=== PATIENT | female | born 1960 | race Caucasian/White ===

== ENCOUNTER 2018-06-26 08:44 | Day surgery (SDC) | payer BC ==
[2018-06-21 14:51] VITALS: BMI 31.7
[~2018-06-26 08:44] MED LIST: LACTATED RINGERS 1,000 ML IV SCH
[2018-06-26 09:51] VITALS: RESP 16; TEMP 98.1
[2018-06-26] MEDS ORDERED: LIDOCAINE 1% 20 ML VIAL (10MG/ML) FOR IV START INTRADERMA ONE (09:51)
[2018-06-26] MEDS ORDERED: LIDOCAINE 1% INJ 10MG/ML (20 ML MDV) ONE (10:49)
[2018-06-26] MEDS ORDERED: PROPOFOL 10 MG/ML 20 ML VIAL IV ONE (10:49)
--- NOTE | 2018-06-26 11:32 | P.PCN ---
Date of Procedure: 06/26/18 Procedure(s) Performed: Procedure: Colonoscopy and polypectomy. Preoperative diagnosis: Screening for neoplasia. Postoperative diagnosis: Sigmoid polyp snared but no large polyps or cancer. Preparation: HalfLytely prep. Sedation: Was provided by anesthesia. Brief clinical history: The patient is a 57-year-old female who is scheduled for this evaluation for screening for neoplasia age being her risk factor. There is no family history of colon cancer. The patient has no abdominal complaints, bleeding or anemia. This would be her first colonoscopy. Procedure: With the patient on her left lateral decubitus position and after informed consent and adequate sedation, the perianal area was inspected and it did not show any fissures or fistulas. There were no masses felt on digital rectal examination. The Olympus CFQ 160L video colonoscope was then inserted in the rectum in the usual fashion and advanced to the cecum. There was a pedunculated sigmoid polyp measuring around 1-1.5 cm which was snared and retrieved by suction but there were no large polyps or cancer. I retroflexed the endoscope in the rectum before the endoscope was withdrawn. The patient tolerated the procedure well. Plan: The patient was reassured. She will follow-up with you as planned and I recommended repeat exam in 5 years.
[2018-06-26 11:43] VITALS: BP 117/66; PULSE 77
== END 2018-06-26 12:13 | disposition home or self-care (01) ==
LOC: ORWHC2ENDO 08:44
DX: Z12.11 Encounter for screening for malignant neoplasm of colon (principal); D12.5 Benign neoplasm of sigmoid colon; Z88.8 Allergy status to other drugs, medicaments and biological substances; Z85.828 Personal history of other malignant neoplasm of skin; Z85.51 Personal history of malignant neoplasm of bladder; Z79.1 Long term (current) use of non-steroidal anti-inflammatories (NSAID); F17.200 Nicotine dependence, unspecified, uncomplicated
CPT/HCPCS: 88305; 45385; J2001; J2704

== ENCOUNTER → 2018-07-02 | Outpatient (CLI) | payer BC ==
--- NOTE | 2018-07-03 13:46 | MM ---
Reason for exam: screening (asymptomatic). Last mammogram was performed 3 years and 8 months ago. History: Patient is postmenopausal and has history of other cancer at age 56. Physical Findings: A clinical breast exam by your physician is recommended on an annual basis and results should be correlated with mammographic findings. MG Screening Mammo w CAD Bilateral CC and MLO view(s) were taken. Prior study comparison: November 07, 2014, bilateral MG screening mammo w CAD. November 30, 2012, bilateral digital screening mammo w/CAD. There are scattered fibroglandular densities. No suspicious abnormality. No significant changes when compared with prior studies. ASSESSMENT: Negative, BI-RAD 1 RECOMMENDATION: Routine screening mammogram of both breasts in 1 year.
== END | disposition home or self-care (01) ==
LOC: RADMAMWWP 07:09
PROVIDERS: ATTEND Family Medicine
DX: Z12.31 Encounter for screening mammogram for malignant neoplasm of breast (principal); C67.9 Malignant neoplasm of bladder, unspecified
CPT/HCPCS: 77067

== ENCOUNTER → 2020-08-10 | Outpatient (CLI) | payer BC ==
--- NOTE | 2020-08-11 13:32 | MM ---
Reason for exam: screening (asymptomatic). Last mammogram was performed 2 years and 1 month ago. History: Patient is postmenopausal and has history of other cancer at age 56. Family history of breast cancer in sister at age 39. Physical Findings: A clinical breast exam by your physician is recommended on an annual basis and results should be correlated with mammographic findings. MG Screening Mammo w CAD Bilateral CC and MLO view(s) were taken. Prior study comparison: July 02, 2018, bilateral MG screening mammo w CAD. November 07, 2014, bilateral MG screening mammo w CAD. There are scattered fibroglandular densities. Asymmetric breast tissue right posterior breast, stable. There is no discrete abnormality. ASSESSMENT: Negative, BI-RAD 1 RECOMMENDATION: Routine screening mammogram of both breasts in 1 year.
== END | disposition home or self-care (01) ==
LOC: RADMAMWWP 07:48
PROVIDERS: ATTEND Family Medicine
DX: Z12.31 Encounter for screening mammogram for malignant neoplasm of breast (principal)
CPT/HCPCS: 77067

== ENCOUNTER → 2021-10-04 | Outpatient (CLI) | payer BC ==
--- NOTE | 2021-10-05 10:08 | MM ---
Reason for exam: screening (asymptomatic). Last mammogram was performed 1 year and 2 months ago. History: Patient is postmenopausal and has history of other cancer at age 56. Family history of breast cancer in sister at age 39. Physical Findings: A clinical breast exam by your physician is recommended on an annual basis and results should be correlated with mammographic findings. MG Screening Mammo w CAD Bilateral CC and MLO view(s) were taken. Prior study comparison: August 10, 2020, bilateral MG screening mammo w CAD. July 02, 2018, bilateral MG screening mammo w CAD. There are scattered fibroglandular densities. There is no discrete abnormality. No significant changes when compared with prior studies. ASSESSMENT: Negative, BI-RAD 1 RECOMMENDATION: Routine screening mammogram of both breasts in 1 year.
== END | disposition home or self-care (01) ==
LOC: RADMAMWWP 13:00
PROVIDERS: ATTEND Family Medicine
DX: Z12.31 Encounter for screening mammogram for malignant neoplasm of breast (principal); Z80.3 Family history of malignant neoplasm of breast; Z78.0 Asymptomatic menopausal state
CPT/HCPCS: 77067

== ENCOUNTER → 2022-04-11 | Outpatient (CLI) | payer BC ==
--- NOTE | 2022-04-11 18:30 | BD ---
EXAMINATION TYPE: Axial Bone Density DATE OF EXAM: 04/11/2022 COMPARISON: 11/07/2014 CLINICAL HISTORY: 61 years year old Female. ICD-10 CODE: M85.89 OTHER DISORDER OF BONE Height: 61.2 IN Weight: 173 LBS FRAX RISK QUESTIONS: Family History (Parent hip fracture): YES MOTHER History of Fracture in Adulthood: YES RT WRIST AGE 35; Current Tobacco Use: YES RISK FACTORS HISTORY OF: History of Wrist Fracture: RT WRIST AGE 37 Active: YES Diet low in dairy products/other sources of calcium: YES Postmenopausal woman: AGE 52 MEDICATIONS: Additional Medications: CHOLESTEROL MEDS, ANTI DEPRESSANT MEDS EXAM MEASUREMENTS: Bone mineral densitometry was performed using the [employer] System. Bone mineral density as measured about the Lumbar spine is: ----- L1-L4(G/cm2): 1.243 T Score Values are as follows: ----- L1: 0.1 ----- L2: 0.2 ----- L3: 1.0 ----- L4: 0.6 ----- L1-L4: 0.6 Bone mineral density has: Decreased -7.5% since study of: 11/07/2014 Bone mineral density about the R hip (g/cm2): 0.791 Bone mineral density about the L hip (g/cm2): 0.832 T Score values are as follows: -----R Neck: -1.8 -----L Neck: -1.5 -----R Total: -1.3 -----L Total: -1.3 Bone mineral density has: Decreased -1.5% since study of: 11/07/2014 FRAX%s: The graph provided illustrates a 15.9 chance for a major osteoporotic fx and a 1.5 chance for the hips probability for fx in 10 years time. IMPRESSION: Osteopenia (T Score between -2.5 and -1). There is slightly increased risk of fracture and the patient may be considered for treatment. Re-Screen 2-5 years. NOTE: T-SCORE=SD OF THE YOUNG ADULT MEAN.
== END | disposition home or self-care (01) ==
LOC: RADBDWWP 14:47
PROVIDERS: ATTEND Family Medicine
DX: M85.89 Other specified disorders of bone density and structure, multiple sites (principal)
CPT/HCPCS: 77080

== ENCOUNTER 2022-06-01 08:19 | Day surgery (SDC) | payer BC ==
[2022-05-30 12:13] VITALS: BMI 31.5
[2022-06-01 09:07] VITALS: TEMP 97.4
[2022-06-01] MEDS ORDERED: PROPOFOL 10 MG/ML 20 ML VIAL IV ONE (09:35)
--- NOTE | 2022-06-01 09:59 | P.PCN ---
Date of Procedure: 06/01/22 Procedure(s) Performed: BRIEF HISTORY: Patient is a 61-year-old pleasant white female scheduled for an elective colonoscopy as a part of evaluation of prior history of colon polyps. PROCEDURE PERFORMED: Colonoscopy With snare polypectomy. PREOPERATIVE DIAGNOSIS: History of colon polyps. IV sedation per Anesthesia. PROCEDURE: After informed consent was obtained, the patient, was brought into the endoscopy unit. IV sedation was administered by Anesthesia under continuous monitoring. Digital rectal examination was normal. Initially the Olympus CF-160 flexible video colonoscope was then inserted in the rectum, gradually advanced into the cecum without any difficulty. Careful examination was performed as the scope was gradually being withdrawn. Ileocecal valve and the appendiceal orifice were visualized and appeared normal. Prep was excellent. Mucosa of the cecum, ascending colon appeared normal. In the hepatic flexure there was a 5 mm polyp removed by snare polypectomy. Rest of the, transverse colon, descending colon, sigmoid colon, and rectum appeared normal. In the sigmoid colon there was a 5 mm and 7 mm polyp removed by snare polypectomy. Retroflexion was performed in the rectum and no lesions were seen. The patient tolerated the procedure well. IMPRESSION: 5 mm hepatic flexure polyp status post polypectomy 5 mm and 7 mm sigmoid polyp status post polypectomy RECOMMENDATIONS: Findings of this examination were discussed with the patient well as his family. She was advised to follow with the biopsy results. If the biopsy results adenoma she can have a repeat colonoscopy in 5 years..
[2022-06-01 10:20] VITALS: BP 126/60
[2022-06-01 10:32] VITALS: PULSE 78; RESP 17
== END 2022-06-01 10:40 | disposition home or self-care (01) ==
LOC: ORWHC2ENDO 08:19
PROVIDERS: ATTEND Internal Medicine Gastroenterology
DX: Z12.11 Encounter for screening for malignant neoplasm of colon (principal); D12.5 Benign neoplasm of sigmoid colon; E78.5 Hyperlipidemia, unspecified; F32.9 Major depressive disorder, single episode, unspecified; F17.210 Nicotine dependence, cigarettes, uncomplicated; C67.9 Malignant neoplasm of bladder, unspecified; Z79.899 Other long term (current) drug therapy; Z86.010 Personal history of colon polyps; Z88.1 Allergy status to other antibiotic agents
CPT/HCPCS: 88305; 45385; J2704

== ENCOUNTER → 2023-11-20 | Outpatient (CLI) | payer BC ==
--- NOTE | 2023-11-21 14:05 | MM ---
Reason for Exam: Screening (asymptomatic). Last screening mammogram was performed 12 month(s) ago. Patient History: Menarche at age 16. First Full-Term at age 32. Late child-bearing (after 30). Postmenopausal. Other cancer, age 56. Sister had breast cancer, age 39. Risk Values: Micki 5 year model risk: 2.7%. NCI Lifetime model risk: 12.7%. Prior Study Comparison: 08/10/2020 Bilateral Screening Mammogram, [facility]. 10/04/2021 Bilateral Screening Mammogram, [facility]. 11/09/2022 Bilateral MG screening mammo w CAD, [facility]. Tissue Density: The breasts are almost entirely fatty. Findings: Analyzed By CAD. There is no suspicious group of microcalcifications or new suspicious mass. Overall Assessment: Negative, BI-RAD 1 Management: Screening Mammogram of both breasts in [address] [facility] will attempt to contact patient to return for supplemental views and ultrasound if indicated. Patient should continue monthly self-breast exams. A clinical breast exam by your physician is recommended on an annual basis. This exam should not preclude additional follow-up of suspicious palpable abnormalities. Note on Micki scores and lifetime risk: 1. A Micki score greater than 3% is considered moderate risk. If this is the case, consider specialist referral to assess eligibility for a risk reducing agent. 2. If overall lifetime risk for the development of breast cancer is 20% or higher, the patient may qualify for future screening with alternating mammogram and breast MRI. Electronically signed and approved by: Talha Bynum DO
== END | disposition home or self-care (01) ==
LOC: RADMAMWWP 12:29
PROVIDERS: ATTEND Family Medicine
DX: Z12.31 Encounter for screening mammogram for malignant neoplasm of breast (principal); Z80.3 Family history of malignant neoplasm of breast; Z78.0 Asymptomatic menopausal state
CPT/HCPCS: 77067

== ENCOUNTER → 2024-06-12 | Outpatient (CLI) | payer BC ==
--- NOTE | 2024-06-12 10:18 | BD ---
EXAMINATION TYPE: Axial Bone Density DATE OF EXAM: 06/12/2024 CLINICAL HISTORY: 63 years old Female. ICD-10 CODE: Z78.0 ASYMPTOMATIC MENOPAUSAL STATE Height: 62" Weight: 177lbs FRAX RISK QUESTIONS: Alcohol (3 or more units per day): No Family History (Parent hip fracture): No Glucocorticoids (More than 3mos): No (Ex: prednisone, prednisolone, methylprednisolone, dexamethasone, and hydrocortisone). History of Fracture in Adulthood: Yes, right w Secondary Osteoporosis: 1. Type 1 Diabetes: No 2. Hyperthyroidism: No 3. Menopause before 45: No 4. Malnutrition: No 5. Chronic liver disease: No Rheumatoid Arthritis: No Current Tobacco Use: Yes RISK FACTORS HISTORY OF: Hip Fracture (Right/Left): No Spine Fracture: No History of Wrist Fracture: Yes When: Right side Surgery to Spine/Hip(right/left)/Wrist (right/left): No MEDICATIONS: Thyroid Medications: No Osteoporosis Medications: No EXAM MEASUREMENTS: Bone mineral densitometry was performed using the Heart[employer] System. Bone mineral density as measured about the Lumbar spine is: ----- L1-L4(G/cm2): 1.243 T Score Values are as follows: ----- L1: -0.5 ----- L2: 0.3 ----- L3: 1.1 ----- L4: 0.8 ----- L1-L4: 0.5 Z Score Values are as follows: ----- L1: 0.4 ----- L2: 1.2 ----- L3: 1.9 ----- L4: 1.6 ----- L1-L4: 1.3 Bone mineral density has: remained the same 0.0% since study of: 04/11/2022 Bone mineral density about the R hip (g/cm2): 0.831 Bone mineral density about the L hip (g/cm2): 0.842 T Score values are as follows: -----R Neck: -1.9 -----L Neck: -1.7 -----R Total: -1.4 -----L Total: -1.3 Z Score values are as follows: -----R Neck: -0.9 -----L Neck: -0.7 -----R Total: -0.8 -----L Total: -0.7 Bone mineral density has: decreased -0.4% since study of: 04/11/2022 FRAX%s: The graph provided illustrates a 9.5% chance for a major osteoporotic fx and a 1.9% chance fo r the hips probability for fx in 10 years time. IMPRESSION: Osteopenia (T Score between -2.5 and -1). There is slightly increased risk of fracture and the patient may be considered for treatment. Re-Screen 2-5 years. NOTE: T-SCORE=SD OF THE YOUNG ADULT MEAN. [facility], , 06/12/2024 10:16 AM
== END | disposition home or self-care (01) ==
LOC: RADBDWWP 09:07
PROVIDERS: ATTEND Family Medicine
DX: Z78.0 Asymptomatic menopausal state
CPT/HCPCS: 77080

== ENCOUNTER → 2024-11-06 | Outpatient (CLI) | payer BC ==
--- NOTE | 2024-11-07 10:24 | CA ---
Exercise Stress Test Report Name: Tea Zaldivar Exam Date: 11/06/2024 08:58 Exam Location: [facility] Ht (in): 61 Wt (lb): 180 BSA: 1.81 Ordering Phys: Abbey Reid DO Referring Phys: Courtney Radford [facility] Technologist: Gennaro Dupont Age: 64 Gender: F : 1960 Procedure CPT: Indications: R06.02 SOB ICD-10 Codes: Patient History: Shortness of breath and history of tobacco use. Medications: Meds past 24 hrs: Pretest Chest Pain: STRESS TEST Frank Protocol Exercise Duration (min:sec): 04:[address] Depressions (mm): Angina Score: Cain Score: Resting HR (bpm): 74 Peak HR (bpm): 159 Resting BP (mmHg): 137 / 73 Peak BP (mmHg): 220 / 38 MPHR: 158 Target HR: 134 % MPHR: 101 METS: 7.1 Total Dose: Peak Dose: Atropine: Double Product: 22875 BP Response: Stress Termination: Reached target heart rate Stress Symptoms: No chest pain or pressure with treadmill exercise Stress Summary: Hypertensive response to treadmill exercise. ECG ANALYSIS Resting ECG: Sinus rhythm. Normal conduction. No arrhythmias. Stress ECG: Nonspecific ST-T abnormality that is suggestive of exercise induced ischemia CONCLUSIONS Fair exercise tolerance. Patient achieved 7.1 METS Non ischemic ECG response to exercise Normal clinical response to treadmill exercise Hypertensive response to exercise, suggest cardiac deconditioning Dr Brett Delatorre (Electronically Signed) Final Date: 06 November 2024 11:04
== END | disposition home or self-care (01) ==
LOC: RADNMMAIN 08:27
PROVIDERS: ATTEND Family Medicine
DX: I10 Essential (primary) hypertension (principal); R06.02 Shortness of breath; Z87.891 Personal history of nicotine dependence
CPT/HCPCS: 93017

== ENCOUNTER → 2025-01-20 | Outpatient (CLI) | payer BC ==
--- NOTE | 2025-01-20 07:55 | MM ---
Reason for Exam: Screening (asymptomatic). Last mammogram was performed 1 year(s) and 2 month(s) ago. Patient History: Menarche at age 16. First Full-Term at age 32. Late child-bearing (after 30). Postmenopausal. Other cancer, age 56. Sister had breast cancer, age 39. Risk Values: Micki 5 year model risk: 2.8%. NCI Lifetime model risk: 12.4%. Prior Study Comparison: 07/02/2018 Bilateral Screening Mammogram, [facility]. 08/10/2020 Bilateral Screening Mammogram, [facility]. 10/04/2021 Bilateral Screening Mammogram, [facility]. 11/09/2022 Bilateral MG screening mammo w CAD, [facility]. 11/20/2023 Bilateral MG screening mammo w CAD, [facility]. Tissue Density: There are scattered areas of fibroglandular density. Findings: Analyzed By CAD. Benign appearing bilateral axillary lymph nodes are redemonstrated. There is no suspicious group of microcalcifications or new suspicious mass in either breast. Overall Assessment: Negative, BI-RAD 1 Management: Screening Mammogram of both breasts in 1 year. . Patient should continue monthly self-breast exams. A clinical breast exam by your physician is recommended on an annual basis. This exam should not preclude additional follow-up of suspicious palpable abnormalities. Note on Micki scores and lifetime risk: 1. A Micki score greater than 3% is considered moderate risk. If this is the case, consider specialist referral to assess eligibility for a risk reducing agent. 2. If overall lifetime risk for the development of breast cancer is 20% or higher, the patient may qualify for future screening with alternating mammogram and breast MRI. [facility], , 01/20/2025 7:52 AM. Electronically signed and approved by: Baljit Sweet M.D.
== END | disposition home or self-care (01) ==
LOC: RADMAMWWP 07:12
PROVIDERS: ATTEND Family Medicine
DX: Z12.31 Encounter for screening mammogram for malignant neoplasm of breast (principal); R92.323 Mammographic fibroglandular density, bilateral breasts; Z78.0 Asymptomatic menopausal state; Z80.3 Family history of malignant neoplasm of breast
CPT/HCPCS: 77067